=== PATIENT | male | born 1940 | race Caucasian/White ===

== ENCOUNTER 2022-09-13 09:55 | Emergency (ER) | payer OTHER ==
[~2022-09-13] VITALS: Ht 160 cm; Wt 77.1 kg
[2022-09-13 10:16] VITALS: BP_SYST 156
--- NOTE | 2022-09-13 10:27 | NUR ---
Patient to ER bed H1 to gown for evaluation. Side rails up. Report given to PRINCESS EDMOND.
--- NOTE | 2022-09-13 10:32 | NUR ---
Pt presents to the ER with sister. [facility] Medical Clearance release to [facility]. Pt complains of bilateral knee joint pain with uncontrolled pain management. Pt complains of frequency in urination, with history of BPH.
[2022-09-13] MEDS ORDERED: MELO15TA13 PO (10:42)
[2022-09-13] MEDS ORDERED: LEVO25TA11 PO (10:42)
[2022-09-13] MEDS ORDERED: FOLI-43 PO (10:42)
[2022-09-13] MEDS ORDERED: MIRT-92 PO (10:42)
[2022-09-13] MEDS ORDERED: NAPR-1174 PO (10:42)
--- NOTE | 2022-09-13 10:44 | NUR ---
MEDICATION RECONCILED UPDATED IN SYSTEM.
--- NOTE | 2022-09-13 10:45 | NUR ---
ER at bedside examining patient.
--- NOTE | 2022-09-13 11:02 | NUR ---
Vi young in [facility] - 09/13/22 at 1103 by SDNUR[employer] G[employer] ELEV[employer] WORKER informed of coordinating transpo. ETA 1130.
[2022-09-13 11:20] LABS: BASOPHILS # (AUTO) 0.1 K/uL (0.0-0.2); BASOPHILS % (AUTO) 0.6 % (0.0-2.0); EOSINOPHILS # (AUTO) 0.4 K/uL (0.0-0.4); EOSINOPHILS % (AUTO) 3.9 % (0.0-4.0); HEMATOCRIT 33.2 % (36-54); HEMOGLOBIN 10.4 g/dL (14.0-18.0); LYMPHOCYTES # (AUTO) 2.8 K/uL (1.0-5.5); LYMPHOCYTES % (AUTO) 30.8 % (20.5-51.5); MEAN CORPUSCULAR HEMOGLOBIN 24 pg (27-31); MEAN CORPUSCULAR HGB CONC 31 % (32-36); MEAN CORPUSCULAR VOLUME 77 fL (79.0-98.0); MONOCYTES # (AUTO) 0.8 K/uL (0.0-1.0); MONOCYTES % (AUTO) 8.7 % (1.7-9.3); NEUTROPHILS # (AUTO) 5.1 K/uL (1.8-7.7); PLATELET COUNT (AUTO) 385 K/uL (130-430); RED CELL DISTRIBUTION WIDTH 18.5 % (9.0-15.0)
[2022-09-13 11:24] LABS: BILIRUBIN,URINE NEGATIVE (NEGATIVE); BLOOD, URINE 3+ (NEGATIVE); CLARITY/URINE CLOUDY (CLEAR); COLOR,URINE YELLOW (YELLOW); GLUCOSE,URINE NEGATIVE (NEGATIVE); KETONES,URINE NEGATIVE (NEGATIVE); LEUKOCYTE ESTERASE ,URINE 3+ (NEGATIVE); NITRITE, URINE POSITIVE (NEGATIVE); PROTEIN URINE TRACE (NEGATIVE); UROBILINOGEN,URINE 0.2 (0.2-1.0)
--- NOTE | 2022-09-13 11:30 | NUR ---
Patient given written and verbal discharge instructions and verbalizes understanding. ER MD discussed with patient the results and treatment provided. Patient in stable condition. ID arm band removed. Opportunity for questions provided and answered. Medication side effect fact sheet provided.
[2022-09-13 11:34] LABS: ANION GAP 5 (5-15); CALCIUM 8.9 mg/dL (8.4-11.0); CHLORIDE 106 mmol/L (98-107); CREATININE 1.74 mg/dL (0.55-1.30); GLUCOSE 108 mg/dL (70-99); UREA NITROGEN, BLOOD 39 mg/dL (8-21)
[2022-09-13 11:38] LABS: ALANINE AMINOTRANSFERASE 16 U/L (12-78); ASPARTATE AMINOTRANSFERASE 11 U/L (10-37); CHOLESTEROL 210 mg/dL (<200); HDL CHOLESTEROL 45 mg/dL (>45); LDL CHOLESTEROL 119 mg/dL (<100); TOTAL BILIRUBIN 0.3 mg/dL (0.0-1.0); TRIGLYCERIDES 192 mg/dL (30-150)
[2022-09-13 11:38] LABS: BARBITURATE, URINE NEGATIVE (NEG <=200); BENZODIAZEPINE, URINE NEGATIVE (NEG <=150); CANNABINOID, URINE NEGATIVE (NEG <=50); COCAINE, URINE NEGATIVE (NEG <=150); METHAMPHETAMINES SCREEN,URINE NEGATIVE (NEG <=500); OPIATE, URINE NEGATIVE (NEG <=100); PHENCYCLIDINE SCREEN,URINE NEGATIVE (NEG <=25); UR TRICYCLIC ANTIDEPRESSANTS NEGATIVE (NEG <=300); URINE AMPHETAMINE NEGATIVE (NEG <=500); URINE METHADONE NEGATIVE (NEG <=200); URINE OXYCODONE SCREEN NEGATIVE (NEG <=100); URINE PROPOXYPHENE SCREEN NEGATIVE (NEG <=300)
[2022-09-13 11:39] LABS: BACTERIA,URINE FEW /HPF (None Seen); MUCUS,URINE None Seen /LPF (None Seen); RBC,URINE 0-3 /HPF (0-3); WBC,URINE 20-50 /HPF (0-3)
[2022-09-13 11:47] LABS: ACETAMINOPHEN < 1 ug/mL (1-30); ALCOHOL, BLOOD < 3 mg/dL (<10)
[2022-09-13] MEDS ORDERED: NITR-85 PO (12:23)
[2022-09-13] MEDS ORDERED: TAMS0.4C96 PO (12:23)
[2022-09-13 13:55] VITALS: BP_SYST 156
== END 2022-09-13 11:30 | disposition home or self-care (01) ==
LOC: SED 09:55
DX: Z00.8 Encounter for other general examination (principal); N39.0 Urinary tract infection, site not specified; N40.0 Benign prostatic hyperplasia without lower urinary tract symptoms; Z79.899 Other long term (current) drug therapy
CPT/HCPCS: 99283; 80061; 80307; 80053; 85025; 87086; 36415; 83036; 81000; G0482; G0480; G0481